=== PATIENT | male | born 1955 | race Caucasian/White ===

== ENCOUNTER 2016-08-05 20:12 | Emergency (ER) | payer MEDICARE, MEDICAID ==
[~2016-08-05 20:12] MED LIST: ASA CHILDREN'S81 MG PO; ASCORBIC ACID250 MG PO; BACITRACIN--O.0.9 GM TP; COLACE-DPS100 MG PO; DUONEB DPS3 ML IH; FERREX 150150 MG PO; FLEXERIL DPS5 MG PO; HEPARIN5000 UNITS SQ; HYDROCODONE 7.7.5 MG PO; HYTRIN1 MG PO; LACTULOSE20 GM/30 M PO; LASIX40 M1 PO; LEVAQUIN DPS750 MG PO; LEVAQUIN500 MG PO; LEXAPRO DPS20 MG PO; LEXAPRO10 MG PO; LIPITOR DPS20 MG PO; LIPITOR DPS40 MG PO; LOPRESSOR DPS50 MG PO; LYRICA150 MG PO; LYRICA50 MG PO; MAALOX DPS30 ML PO; MIRALAX PACKET17 GM PO; MORPHINE2 MG/ML IV; MUCOMYST 20% DP30 ML IH; NIFEREX-150 FOR1 CAP PO; NITROSTAT0.4 MG SL; NORMAL SALINE I10 ML IV; NS; OXY IR DPS5 MG PO; OXYCONTIN40 MG PO; PERCOCET 10-321 EACH PO; PRILOSEC DPS20 MG PO; PROTONIX40 MG PO; SENOKOT DPS8.6 MG PO; SINGULAIR10 MG PO; SOMA-DPS350 MG PO; SURFAK DPS240 MG PO; SYMBICORT80 MCG/6.9 IH; TYLENOL DPS325 MG PO; TYLENOL-DPS650 MG PR; ULTRAM DPS50 MG PO; VANCOCIN-DPS1 GM IV; VITAMIN D31000 UNIT PO; VITAMIN D3400 UNIT PO; WELLBUTRIN75 MG PO; XOPENEX1.25 MG/3 IH; ZESTRIL DPS5 MG PO; ZOFRAN DPS4 MG/2 ML IV; ZOSYN 3.3753.375 GM IV
--- NOTE | 2016-08-10 07:33 | ER ---
ADMIT: 08/05/2016 RM/LOC: ER [facility] MR#: [id number] [facility] [address] [place], [place] [id number] [employer] [address] [facility] [address] [place] [id number] Emergency Room Report SEX: M AGE: 60 : 1955 DATE: 08/05/2016 TIME: 2011. Please refer to my T-sheet for complete H and P. HISTORY OF PRESENT ILLNESS: Briefly, the patient is a 60-year-old, who comes in with nearly passed out about 30 minutes ago, he had been walking out in the heat, came in and his said he was not responding right and almost passed out. The paramedics arrived and there was a history with him of using a large amount of sedative drugs including narcotic, Soma, bupropion, so they give him Narcan, it seemed to help. By the time he gets here, he feels back to normal. Denies any chest pain, he just felt lightheaded prior to the occurrence of this and it is after he had been out in the heat. PHYSICAL EXAMINATION: VITAL SIGNS: Blood pressure 150/88, pulse 114, respirations 20, temperature 96.8, saturating 95%. GENERAL: No acute distress. HEENT: Grossly normal. LUNGS: Clear. HEART: Regular. ABDOMEN: Soft. SKIN: No rash. NEURO: He is alert, oriented, nonfocal. EMERGENCY DEPARTMENT COURSE: I gave him a liter of normal saline bolus here. His EKG was sinus rhythm, rate 112, no acute changes. CBC normal except white count 11.1, platelets 147. Chemistries normal except potassium 3.4, glucose 119. Tylenol was negative. Troponin was negative. Chest x-ray, negative. After the liter of fluid, we walked him up and down the [place], he was feeling much better. He was kept in the ER for 2 hours. We put a 48-hour Holter after talking to him, he is ready for discharge. ASSESSMENT: 1. Near-syncope. 2. Sedative use. PLAN: Fluids, return if worse, 48-hour Holter, follow up with Dr. Reyes afterwards. Tab Cruz MD/ tony JOB #: [id number] CC: Tab Cruz MD, Attending Physician Elvin Reyes MD, Family Physician
== END 2016-08-05 22:44 | disposition home or self-care (01) ==
LOC: ER 20:12
DX: R55 Syncope and collapse (principal); F13.90 Sedative, hypnotic, or anxiolytic use, unspecified, uncomplicated; I10 Essential (primary) hypertension; K21.9 Gastro-esophageal reflux disease without esophagitis; Z79.899 Other long term (current) drug therapy